=== PATIENT | male | born 1975 | race African-American/Black ===

== ENCOUNTER 2017-05-09 21:45 | Emergency (ER) | payer SELFPAY ==
[~2017-05-09] VITALS: Ht 195.6 cm; Wt 83.9 kg
[2017-05-09 22:10] VITALS: BP 153/90
[2017-05-09 22:41] LABS: Basophils # (auto) 0.1 uL; Basophils % (auto) 0.7 % (0.0-2.0); Eosinophils # (auto) 0.2 uL; Hemoglobin 13.8 g/dL (13.5-17.5)
[2017-05-09 22:43] LABS: Eosinophils % (auto) 1.8 % (0.0-7.0); Hematocrit 41.4 % (41.0-53.0); Lymphocytes # (auto) 4.1 uL; Lymphocytes % (auto) 35.5 % (10.0-50.0); Mean Corpuscular Hemoglobin 34.1 pg (28.0-32.0); Mean Corpuscular Hgb Conc. 33.3 g/dL (32.0-36.0); Mean Corpuscular Volume 102.4 fL (80.0-100.0); Monocytes # (auto) 0.9 uL; Monocytes % (auto) 8.3 % (0.0-12.0); Neutrophils # (auto) 6.1 uL; Neutrophils % (auto) 53.7 % (37.0-80.0); Nucleated Red Blood Cells % 0.4 %; Platelet Count (auto) 212 10^3/uL (140-450); Red Blood Cells 4.04 10^6/uL (4.5-5.90); Red Cell Distribution Width 13.3 % (11.8-14.3); White Blood Cell 11.4 10^3/uL (4.4-10.8)
[2017-05-09 22:58] LABS: BUN/Creatinine Ratio 9.6; Calcium 8.6 mg/dL (8.5-10.1); Potassium 3.4 mmol/L (3.5-5.1)
[2017-05-09 23:01] LABS: Bilirubin, Total 0.3 mg/dL (0.2-1.0); Total Protein 7.3 g/dL (6.4-8.2)
== END 2017-05-10 01:31 | disposition left against medical advice (07) ==
LOC: ER 21:45
DX: R12 Heartburn (principal); Z53.21 Procedure and treatment not carried out due to patient leaving prior to being seen by health care provider
CPT/HCPCS: 36415; 70486; 71045; 80053; 85025

== ENCOUNTER 2020-09-28 13:14 | Emergency (ER) | payer BC, OTHER ==
[~2020-09-28] VITALS: Ht 195.6 cm; Wt 81.6 kg
[2020-09-28 14:05] VITALS: BP 123/90
== END 2020-09-28 16:55 | disposition home or self-care (01) ==
LOC: ER 13:14
DX: S02.32XA Fracture of orbital floor, left side, initial encounter for closed fracture (principal); S02.832A Fracture of medial orbital wall, left side, initial encounter for closed fracture; S02.2XXA Fracture of nasal bones, initial encounter for closed fracture; S01.81XA Laceration without foreign body of other part of head, initial encounter; S16.1XXA Strain of muscle, fascia and tendon at neck level, initial encounter; R51.9 Headache, unspecified; F17.210 Nicotine dependence, cigarettes, uncomplicated; Z88.5 Allergy status to narcotic agent; Z98.890 Other specified postprocedural states; Y04.8XXA Assault by other bodily force, initial encounter; Y93.89 Activity, other specified; Y92.89 Other specified places as the place of occurrence of the external cause; Y99.8 Other external cause status
CPT/HCPCS: 70450; 70486

== ENCOUNTER 2020-09-28 18:06 | Emergency (ER) | payer BC, OTHER ==
[~2020-09-28] VITALS: Ht 162.6 cm; Wt 72.6 kg
[2020-09-28] MEDS ORDERED: HYDROcodone-ACET 10/325MG TAB PO ONE (19:45)
== END 2020-09-28 20:38 | disposition home or self-care (01) ==
LOC: ER 18:10
DX: S02.32XA Fracture of orbital floor, left side, initial encounter for closed fracture (principal); S02.832B Fracture of medial orbital wall, left side, initial encounter for open fracture; S02.2XXA Fracture of nasal bones, initial encounter for closed fracture; F17.210 Nicotine dependence, cigarettes, uncomplicated; Z88.5 Allergy status to narcotic agent; Z98.890 Other specified postprocedural states; Y08.89XA Assault by other specified means, initial encounter; Y93.89 Activity, other specified; Y92.89 Other specified places as the place of occurrence of the external cause; Y99.8 Other external cause status